=== PATIENT | male | born 1985 | race Caucasian/White ===

== ENCOUNTER 2018-12-15 20:51 | Emergency (ER) | payer OTHER ==
[~2018-12-15] VITALS: Wt 220.0 kg
[~2018-12-15 20:51] MED LIST: ALBU90AE INHALATION; AMLO-218 PO; ASPI-817 PO; BENZ1TAB7 PO; BRIM15DR2 BOTH EYES; BUPR-75 PO; HYDR50CA PO; LAS20 PO; LISI10TA2 PO; METF-849 PO; PALI156D IM; PANT40TA4 PO; TIMO5DRO7 BOTH EYES
[2018-12-15] MEDS ORDERED: ALBUTEROL 0.083% (NEB) 2.5 MG/3 ML AMP NEB STA (21:12)
[2018-12-15] MEDS ORDERED: METHYLPREDNISOLONE 125 MG INJ IM STA (21:12)
--- NOTE | 2018-12-15 21:26 | ERD ---
ER Documentation Chief Complaint Chief Complaint BIB [facility] FROM [facility]B / ASTHMA EXACERBATION HPI This is a 33-year-old male says he has asthma attack today. He said to have about an hour ago and did not have his inhaler or machine to use. EMS picked him up and he was wheezing and they gave him 1 breathing treatment in route and he says he feels much better. Has some slight wheezing still but no recent cough fever chest pain. ROS All systems reviewed and are negative except as per history of present illness. Medications Home Meds Active Scripts Aspirin* (Aspirin* EC) 81 Mg Tablet.dr, 81 MG PO DAILY for 30 Days, TAB Prov:VIVIANA MORTENSEN NIGHT ORDER SELECTOR 11/17/15 Reported Medications Albuterol Sulfate (Proair Respiclick) 90 Mcg Aer.pow.ba, 2 PUFFS INHALATION Q4, BOTTLE 05/22/16 Pantoprazole (Protonix) 40 Mg Tabec, 40 MG PO DAILY, TAB 05/22/16 Lisinopril* (Lisinopril*) 10 Mg Tablet, 10 MG PO BID, #30 TAB 05/22/16 Furosemide (Lasix) 20 Mg Tab, 20 MG PO TID, TAB 05/22/16 Paliperidone Palmitate (Invega Sustenna) 156 Mg/1 Ml Disp.syrin, 156 MG IM ONCE, SYR 05/22/16 Hydroxyzine Pamoate* (Vistaril*) 50 Mg Cap, 50 MG PO Q6H, CAP 05/22/16 Benztropine Mesylate* (Cogentin*) 1 Mg Tab, 1 MG PO BID, TAB 05/22/16 Bupropion Hcl* (Wellbutrin XL*) 150 Mg Tab.sr.24h, 150 MG PO DAILY, TAB.SA 05/22/16 Metformin* (Glucophage*) 500 Mg Tab, 1000 MG PO, #60 TAB With breakfast and dinner 05/01/16 Brimonidine Tartrate* (Alphagan P*) 0.1%-15 Ml Opht Drops, 1 DROP BOTH EYES Q8, #1 EA 05/01/16 Amlodipine Besylate* (Norvasc*) 10 Mg Tablet, 5 MG PO DAILY, TAB 12/08/15 Timolol Maleate* (Timoptic*) 0.25%-2.5ml Opht, 1 DROP BOTH EYES BID, EA 08/20/15 Allergies Allergies: Coded Allergies: pineapple (Verified Allergy, Unknown, 05/01/16) sertraline HCl (Verified Allergy, Unknown, 05/01/16) Uncoded Allergies: PLASTIC TAPE (Allergy, Unknown, rash, 08/29/15) PMhx/Soc History of Surgery: Yes (L. knee surgery, left eye surgery.) Anesthesia Reaction: No Hx Neurological Disorder: Yes (neuropathy, CVA) Hx Respiratory Disorders: Yes (Asthma) Hx Cardiac Disorders: Yes (HTN) Hx Psychiatric Problems: Yes (Bipolar disorder) Hx Miscellaneous Medical Probl: No Hx Alcohol Use: Yes (Tequila stopped 3 years ago.) Hx Substance Use: No Hx Tobacco Use: Yes Smoking Status: Former smoker FmHx Family History: No coronary disease Physical Exam Vitals Vital Signs Date Temp Pulse Resp B/P (MAP) Pulse Ox O2 O2 Flow FiO2 Time Delivery Rate 12/15/18 98.6 75 19 120/60 98 Room Air 21:09 (80) 12/15/18 98.6 74 19 111/56 98 21:06 (74) Physical Exam Const: Well-developed, well-nourished Head: Atraumatic, normocephalic Eyes: Normal Conjunctiva, PERRLA, EOMI, normal sclera, no nystagmus ENT: Normal External Ears, Nose and Mouth, moist mucus membranes. Neck: Full range of motion. No meningismus, no lymphadenopathy. Resp: Very mild end expiratory wheezing but good air movement Cardio: Regular rate and rhythm, no murmurs, S1 S2 present Abd: Soft, non tender x 4, non distended. Normal bowel sounds, no guarding or rebound, no pulsitile abdominal masses or bruits Skin: No petechiae or rashes, no ecchymosis , no maculopapular rash Back: No midline or flank tenderness Ext: No cyanosis, or edema, FROM x 4, normal inspection, neurovascularly intact x 4 Neur: Awake and alert, STR 5/5 x 4, sensation intact x 4, no focal findings, cerebellum intact Psych: Normal Mood and Affect Results 24 hrs Current Medications Medications Dose Sig/Jesse Start Time Status Last (Trade) Ordered Route PRN Stop Time Admin Dose Reason Admin Albuterol 5 mg ONCE STAT 12/15/18 DC (Proventil NEB 21:12 0.083% (Neb)) 12/15/18 21:14 125 mg ONCE STAT 12/15/18 DC Methylprednis IM 21:12 olone Sodium 12/15/18 21:14 Succinate (Solu-Medrol) Procedures/MDM Patient will get 1 breathing treatment here with some methyl prednisone IM. Will discharge home with an inhaler and some prednisone. After his treatment here he is breath sounds are clear, with good oxygen saturation Departure Diagnosis: Primary Impression: Asthma with acute exacerbation Asthma severity: unspecified severity Asthma persistence: unspecified Qualified Codes: J45.901 - Unspecified asthma with (acute) exacerbation Condition: Stable JAM YUAN DO Dec 15, 2018 21:26
[2018-12-15] MEDS ORDERED: PRED20TA PO (21:27)
[2018-12-15] MEDS ORDERED: ALBU8.5H8 INH (21:27)
[2018-12-16 00:25] VITALS: BP 122/62; PULSE 76; RESP 18
== END 2018-12-16 00:39 | disposition home or self-care (01) ==
LOC: E/R 20:51
DX: J45.901 Unspecified asthma with (acute) exacerbation (principal); I10 Essential (primary) hypertension; E11.9 Type 2 diabetes mellitus without complications; Z86.73 Personal history of transient ischemic attack (TIA), and cerebral infarction without residual deficits; Z79.84 Long term (current) use of oral hypoglycemic drugs; Z87.891 Personal history of nicotine dependence
CPT/HCPCS: 94664; 96372; J2930; Z7502; Z7610